=== PATIENT | female | born 1930 | race Caucasian/White ===

== ENCOUNTER 2017-02-04 13:41 | Emergency (ER) | payer MEDICARE ==
[2017-02-04] MEDS ORDERED: Ondansetron HCl/PF 4 MG/2 ML Vial ONE (14:04)
[2017-02-04 14:23] LABS: #Basophils 0.1 thou/uL (0.0-0.2); #Eosinphils 0.1 thou/uL (0.0-0.7); #Monocytes 1.1 thou/uL (0.11-0.59); %Basophils 0.9 % (0.0-1.0); %Eosinophils 0.7 % (0.0-10.0); %Lymphocytes 10.8 % (21.0-51.0); %Monocytes 11.7 % (0.0-10.0); %Neutrophils 75.9 % (42.0-75.0); Hemoglobin 12.7 g/dL (12.0-16.0); Mean Corpuscular Hemoglobin 30.6 pg (27.0-31.0); Mean Corpuscular Volume 89.8 fl (81.0-99.0); Mean Platelet Volume 6.2 fL (7.4-10.4); Platelet Count 293 thou/uL (130-400); RBC Distribution Width 12.2 % (11.5-14.5); Red Blood Cell (RBC) Count 4.17 mill/uL (4.20-5.40); White Blood Cell (WBC) Count 9.2 thou/uL (4.8-10.8)
[2017-02-04 14:24] LABS: ALT (SGPT) 227 U/L (0-55); AST (SGOT) 210 U/L (5-34); Albumin 3.8 g/dL (3.4-4.8); Alkaline Phosphatase 215 U/L (40-150); Anion Gap 14 mmol/L (10-20); BUN (Urea Nitrogen) 14 mg/dL (9.8-20.1); Bilirubin, Total 2.8 mg/dL (0.2-1.2); Calc. Creatinine Clearance 0 mL/min (70-130); Calcium 9.7 mg/dL (7.8-10.44); Carbon Dioxide 26 mmol/L (23-31); Chloride 100 mmol/L (98-107); Estimated GFR-MDRD 66; Globulin 3.1 g/dL (2.4-3.5); Glucose 107 mg/dL (83-110); Potassium 4.1 mmol/L (3.5-5.1); Protein, Total 6.9 g/dL (5.8-8.1); Sodium 136 mmol/L (136-145)
[2017-02-04 14:42] LABS: Blood, Urine Trace (Negative); Clarity Clear (Clear); Glucose, Urine (Dipstick) Negative (Negative); Leukocyte Negative (Negative); Nitrite Negative (Negative); Protein, Urine (Dipstick) Negative (Neg-Trace); Specific Gravity, Urine 1.025 (1.005-1.030); pH, Urine 5.5 (5.0-9.0)
[2017-02-04 14:44] LABS: Bilirubin Positive (Negative)
[2017-02-04 14:46] LABS: Bacteria/HPF None Seen HPF (None Seen); RBC/HPF 0-3 HPF (0-3); Squamous Epithelial 0-3 HPF (0-3); WBC/HPF None Seen HPF (0-3)
[2017-02-04] MEDS ORDERED: Ciprofloxacin 500 MG TAB ONE (15:44)
[2017-02-04] MEDS ORDERED: metroNIDAZOLE 250 MG TAB ONE (15:44)
--- NOTE | 2017-02-04 17:09 | CT ---
CT OF ABDOMEN AND PELVIS PERFORMED WITHOUT CONTRAST ENHANCEMENT: 02/04/17 HISTORY: Abdominal pain, mainly suprapubic. COMPARISON: None. The lung bases show chronic change. A large hiatal hernia is present. The liver, spleen, and pancreas regions appear unremarkable given the limitations of a noncontrast study. Gallbladder has been removed. The extrahepatic duct is dilat ed probably on the basis of the cholecystectomy. There is some mild intrahepatic ductal prominence a lso present. The right and left adrenal glands are normal in size and appearance. The right and left kidneys are normal in size. A slightly prominent left extrarenal pelvis. No definitive ureteral calculus is seen . There are several calcifications which are close to the course of the left ureter. No significant periaortic or mesenteric adenopathy. Colon wall is somewhat difficult to assess due to underdistenti on. Some minimal fat stranding adjacent to the transverse colon is probably within normal range. Dif ficult to exclude some element of colitis type change. CT OF PELVIS PERFORMED WITHOUT CONTRAST ENHANCEMENT: Sigmoid diverticular disease is noted. There are some inflammatory changes adjacent to the abscess o r free fluid. The appendix is normal. IMPRESSION: Findings compatible with the sigmoid diverticulitis. Other findings as noted above. POS: [facility]
[2017-02-04 19:02] LABS: HBCM Index 0.05 S/CO (0-0.79); HBSAg Index 0.24 S/CO (0-0.99); Hep A IgM AB Non-Reactive (NonReactive); Hep A IgM S/CO 0.06 S/CO (0-0.79); Hep B Surf Ag Non-Reactive S/CO (NonReactive); Hep C IgG Ab Non-Reactive (NonReactive); Hep C Index 0.08 S/CO (0-0.79); Hepatitis B Core IGM Abs Non-Reactive (NonReactive)
== END 2017-02-04 15:54 | disposition home or self-care (01) ==
LOC: BURERS 13:41
DX: K57.92 Diverticulitis of intestine, part unspecified, without perforation or abscess without bleeding (principal); K21.9 Gastro-esophageal reflux disease without esophagitis; I48.91 Unspecified atrial fibrillation; I10 Essential (primary) hypertension; Z79.899 Other long term (current) drug therapy; Z87.891 Personal history of nicotine dependence
CPT/HCPCS: 36415; 74176; 80053; 80074; 81003; 81015; 85025; 96361; 96374; J2405